=== PATIENT | female | born 1955 | race Two or more races ===

== ENCOUNTER 2023-06-01 13:33 | Emergency (ER) | payer OTHER ==
[~2023-06-01] VITALS: Ht 152.4 cm; Wt 49.0 kg
[2023-06-01] MEDS ORDERED: IOHEXOL 350 MG/ML 100ML IJ ONE (13:49)
[2023-06-01 14:36] LABS: Basophils # (auto) 0.1 10 ^3/uL (0-0.2); Basophils % (auto) 0.9 % (0.0-2.0); Eosinophils # (auto) 0.1 10 ^3/uL (0-0.8); Eosinophils % (auto) 0.5 % (0.0-7.0); Hematocrit 33.9 % (36.0-46.0); Hemoglobin 11.4 g/dL (12.2-16.2); Lymphocytes # (auto) 1.9 10 ^3/uL (0.4-5.4); Lymphocytes % (auto) 20.3 % (10.0-50.0); Mean Corpuscular Hemoglobin 30.9 pg (28.0-32.0); Mean Corpuscular Hgb Conc. 33.6 g/dL (32.0-36.0); Mean Corpuscular Volume 91.8 fL (80.0-100.0); Monocytes # (auto) 0.5 10 ^3/uL (0-1.3); Monocytes % (auto) 5.2 % (0.0-12.0); Neutrophils % (auto) 73.1 % (37.0-80.0); Red Blood Cells 3.69 10^6/uL (4.0-5.20); Red Cell Distribution Width 13.9 % (11.8-14.3); White Blood Cell 9.6 10^3/uL (4.4-10.8)
[2023-06-01 14:52] LABS: INR 0.95 (0.9-1.15); Partial Thromboplastin Time 26.4 SEC (24.5-34.5)
[2023-06-01 15:08] LABS: Potassium 4.8 mmol/L (3.5-5.1)
[2023-06-01 15:15] LABS: Albumin 3.6 g/dL (3.4-5.0); BUN/Creatinine Ratio 12.5 (10.0-20.0); Bilirubin, Total 0.4 mg/dL (0.2-1.0); Calcium 9.2 mg/dL (8.5-10.1); Magnesium 2.1 mg/dL (1.6-2.6)
[2023-06-01] MEDS ORDERED: ASPirin 325 MG TAB PO ONE (16:00)
[2023-06-01 20:33] VITALS: BP 139/103
== END 2023-06-01 20:37 | disposition home or self-care (01) ==
LOC: ER 13:33
DX: G45.9 Transient cerebral ischemic attack, unspecified (principal); E11.9 Type 2 diabetes mellitus without complications; R07.89 Other chest pain
CPT/HCPCS: 36415; 70450; 71045; 80053; 83735; 83880; 84484; 85025; 85610; 85730; 99285; Q9967

== ENCOUNTER 2023-07-12 16:17 | Inpatient (IN) | payer OTHER ==
[2023-07-12] VITALS (7 sets, daily range): BP systolic 99–105; BP diastolic 47–59; PULSE 97–117; RESP 14–22; TEMP 98.3–98.5; O2SAT 98–100
[~2023-07-12] VITALS: Ht 160 cm; Wt 59.0 kg
[2023-07-12 17:27] LABS: Hematocrit 13.4 % (36.0-46.0); Mean Corpuscular Hgb Conc. 35.9 g/dL (32.0-36.0); Mean Corpuscular Volume 89.2 fL (80.0-100.0); Red Cell Distribution Width 13.4 % (11.8-14.3)
[2023-07-12 17:36] LABS: White Blood Cell 1.4 10^3/uL (4.4-10.8)
[2023-07-12 17:37] LABS: Hemoglobin 4.8 g/dL (12.2-16.2)
[2023-07-12 17:39] LABS: Band Neutrophils % (manual) 0; Basophils % (manual) 0 (0.0-2.0); Blast Cells 0; INR 1.04 (0.9-1.15); Myelocytes % 0; Prothrombin Time 10.9 sec (9.3-11.8); Reactive Lymphocytes 0
[2023-07-12 17:46] LABS: Albumin 2.2 g/dL (3.4-5.0); Calcium 6.7 mg/dL (8.5-10.1); Magnesium 1.2 mg/dL (1.6-2.6); Potassium 3.2 mmol/L (3.5-5.1)
[2023-07-12 17:50] LABS: BUN/Creatinine Ratio 13.7 (10.0-20.0); Bilirubin, Total 0.7 mg/dL (0.2-1.0); Total Protein 5.1 g/dL (6.4-8.2)
[2023-07-12] MEDS ORDERED: DEXTROSE (50%) 50ML SYRG IV PRN (18:15)
[2023-07-12] MEDS ORDERED: NITROGLYCERIN 0.4 MG SL TAB SL PRN (18:15)
[2023-07-12] MEDS ORDERED: MORPHINE SULFATE INJ 2 MG/ml SYRG IV PRN (18:15)
[2023-07-12] MEDS ORDERED: SODIUM CHLORIDE 0.9% 1,000 ML IV ONE (18:15)
[2023-07-12 18:28] LABS: Eosinophils % (manual) 1 (0-7); Lymphocytes % (manual) 20 (10.0-50.0); Metamyelocytes % 2; Monocytes % (manual) 11 (0-12); Platelet Estimate Adequate; Promyelocytes % 1
[2023-07-12] MEDS ORDERED: InsuLIN REG 1unit/0.01ml Soln (100units/ml) SC SCH (22:00)
[2023-07-12] MEDS ORDERED: ACCU-CHEK COMFORT CURVE STRIP VI SCH (22:00)
[2023-07-13 00:29] VITALS: BP 104/50; PULSE 95; RESP 20; TEMP 98.3
[2023-07-13 00:38] VITALS: BP 130/59; PULSE 105; RESP 18; TEMP 98.6
[2023-07-13 00:53] VITALS: BP 114/53; PULSE 117; RESP 20; TEMP 98.6
[2023-07-13 02:40] VITALS: BP 102/58; PULSE 94; RESP 20; TEMP 98.3
[2023-07-13 04:48] LABS: Hemoglobin 9.5 g/dL (12.2-16.2)
[2023-07-13 04:51] LABS: Hematocrit 27.2 % (36.0-46.0); Mean Corpuscular Hemoglobin 31.4 pg (28.0-32.0); Mean Corpuscular Volume 89.8 fL (80.0-100.0); Red Blood Cells 3.02 10^6/uL (4.0-5.20); Red Cell Distribution Width 14.2 % (11.8-14.3)
[2023-07-13 05:18] LABS: Basophils % (manual) 0 (0.0-2.0); Blast Cells 0; Eosinophils % (manual) 0 (0-7); Metamyelocytes % 0; Monocytes % (manual) 0 (0-12); Myelocytes % 0; Promyelocytes % 0; Reactive Lymphocytes 0; White Blood Cell 1.3 10^3/uL (4.4-10.8)
[2023-07-13 06:00] VITALS: BP 97/43; PULSE 79; RESP 20; O2SAT 97
[2023-07-13] MEDS ORDERED: MIRT1TAB38 PO (06:34)
[2023-07-13 06:47] LABS: Anisocytosis Slight; Band Neutrophils % (manual) 14; Lymphocytes % (manual) 8 (10.0-50.0); Platelet Estimate Decreased
[2023-07-13 07:35] LABS: Calcium 6.6 mg/dL (8.5-10.1); Potassium 3.3 mmol/L (3.5-5.1)
== END 2023-07-13 06:47 | disposition home health service (06) | DRG 812 ==
LOC: EDBD 16:17 → ER 16:17 → TELE 18:09
PROVIDERS: ADMIT Internal Medicine; ATTEND Internal Medicine
PROC: 30233N1 Transfusion of Nonautologous Red Blood Cells into Peripheral Vein, Percutaneous Approach (ICD-10-PCS; principal; 2023-07-12)
DX: D64.9 Anemia, unspecified (principal); C56.9 Malignant neoplasm of unspecified ovary; C53.9 Malignant neoplasm of cervix uteri, unspecified; R77.8 Other specified abnormalities of plasma proteins; D72.819 Decreased white blood cell count, unspecified; E11.9 Type 2 diabetes mellitus without complications; Z83.3 Family history of diabetes mellitus; Z85.41 Personal history of malignant neoplasm of cervix uteri; Z92.21 Personal history of antineoplastic chemotherapy
CPT/HCPCS: 36415; 36430; 70450; 71045; 80048; 80053; 82962; 83605; 83735; 83880; 84484; 85007; 85027; 85610; 85730; 86850; 86900; 86901; 86920; 87040; 93005; 96360; 99291; G0378